=== PATIENT | female | born 1985 | race Caucasian/White ===

== ENCOUNTER 2022-09-07 09:48 | Outpatient (CLI) | payer OTHER, SELFPAY ==
--- NOTE | 2022-09-07 10:00 | ECG_ITS ---
Measurements Intervals [place] Rate: 82 P: 41 OH: 155 QRS: 12 QRSD: 105 T: 10 QT: 358 QTc: 419 Interpretive Statements SINUS RHYTHM BORDERLINE T WAVE ABNORMALITY- ANTERIOR LEADS BASELINE ARTIFACT- III, AVR, AVL, AVF, V4-V6 BORDERLINE ECG NO PREVIOUS ECG AVAILABLE FOR COMPARISON Electronically Signed On 09-07-2022 10:28:11 SKI MOLDER by [place] D.O.
[2022-09-07 10:42] LABS: Hematocrit 39.7 % (37.0-47.0); Hemoglobin 13.3 g/dL (12.0-15.0)
== END 2022-09-07 09:49 | disposition home or self-care (01) ==
LOC: ANHSURGERY 09:52
PROVIDERS: PCP Nurse Practitioner Adult Health; Visit Provider Obstetrics & Gynecology Gynecology
DX: N81.4 Uterovaginal prolapse, unspecified (principal); N39.3 Stress incontinence (female) (male); E78.00 Pure hypercholesterolemia, unspecified; Z01.818 Encounter for other preprocedural examination; R94.31 Abnormal electrocardiogram [ECG] [EKG]
CPT/HCPCS: 36415; 85014; 85018; 86850; 86900; 86901; 87086; 93005

== ENCOUNTER 2022-09-13 00:57 | Day surgery (SDC) | payer OTHER, SELFPAY ==
--- NOTE | 2022-09-05 14:10 | PM.IMHP ---
H&P: HPI History of Present Illness Date/Time: 09/05/22 14:10 Chief Complaint: Stress incontinence Narrative: desires treatment of her stress incontinence. She is undergoing hysterectomy as well. Review of Systems Review of Systems: All systems reviewed & are unremarkable except as noted in HPI and below Meds Home Medications and Allergies Allergies Allergy/AdvReac Type Severity Reaction Status Date / Time No Known Allergies Allergy Mild Verified 01/12/14 16:23 Exam Narrative: No acute distress normal breathing urethral mobility noted Assessment and Plan Assessment and plan (1) YEIMY (stress urinary incontinence, female): Code(s): N39.3 - Stress incontinence (female) (male) Status: Acute Assessment and Plan: urethral sling. Understands risks of bleeding, infection, lack of efficacy, recurrence, persistence, vaginal mesh extrusion, urinary tract mesh erosion, obstructive voiding requiring secondary procedure, hip and leg pain, dyspareunia. Agrees to proceed
[2022-09-06 14:43] VITALS: BMI 30.4
--- NOTE | 2022-09-06 14:48 | PC.NURSE ---
Report to the Outpatient Waiting Room, entrance under the green pavilion located off [facility], at time 7:15 on date 09/13/22. Planned Procedure Time: 9:15. Time changes happen often and if your time is changed the preop area will call you the afternoon before. - You and your visitor will be asked to self-screen and do not enter if you have any COVID symptoms. - We encourage only one visitor and NO visitors under age 16 are allowed at this time. Your visitor will receive communication by the phone number that is given day of service. - The patient visitor is requested to social distance or may leave the building when not with patient due to restrictions. - A mask is OPTIONAL within the hospital. Patients may have clear liquids (water, carbonated beverages, clear teas, apple juice) until 3 hours prior to surgery (6:15) with a maximum of 20 ounces. - No food from midnight until time of surgery Take the following medications with a SIP of water the morning of surgery: LEVOTHYROXINE Medications to discontinue per physician: VITAMINS/SUPPLEMENTS Date to take last dose: 09/09/22 Please no make-up, nail cambodian, hairspray, perfume, deodorant, or body powder the day of surgery. No jewelry (including any body piercings) or valuables the day of surgery, leave them at home. Please take a shower or bath the night before, or the morning of, surgery with an antibacterial soap. Wear comfortable, loose fitting clothing. - Jewelry must be removed prior to entering the operating room. Rings and piercings that are not removed may be cut off. - The hospital will not accept responsibility for valuables. - Please leave all valuables, including medications, at home the day of surgery. If you are going home after surgery, a licensed furniture delivery driver must drive you home. - NO public transportation without another adult. - We recommend that an adult stay with you for 24 hours following discharge. - We also recommend that you do not drive, make important decision, drink alcoholic beverages, or take any drugs that were not prescribed by your health care provider for at least 24 hours after your discharge time. Follow any additional instructions given to you from your surgeon. If you or anyone in your household have experienced Covid symptoms in the past week, please notify your surgeon or the nurse liaison at the phone number below for possible testing. Telephone instructions given to PT - LILLIE BOWEN and asked if any additional questions and then verbalized understanding. Patient advised to call surgeon office or pre surgery nurse liaison [phone] if any additional questions.
--- NOTE | 2022-09-10 15:56 | P.PNAN_ITS ---
Anes - Initial Pre Proc Eval Procedure: Operation Date: 09/13/22 09:15 Proposed Procedures p Total Vaginal Hysterectomy with Anterior and Posterior Vaginal Repair - Magui Lindsey MD s Urethral Sling - Hussein Wells MD Date/Time: 09/10/22 15:56 Surgeon: Magui Lindsey MD Pre Op Diagnosis: Cystocele, Retocele, Uterine Prolapse Patient Data Age: 37 Gender: F Height: 1.73 m Weight: 90.72 kg Allergies Allergy/AdvReac Type Severity Reaction Status Date / Time topiramate [From Topamax] Allergy Other Verified 09/06/22 14:41 codeine AdvReac Mild Nausea and Verified 09/13/22 07:10 Vomiting Home Medications Medication Instructions Recorded Confirmed Type atorvastatin 20 mg tablet 20 mg PO DAILY 09/06/22 09/13/22 History folic acid 1 mg tablet 1 mg PO DAILY 09/06/22 09/13/22 History levothyroxine 25 mcg tablet 25 mcg PO DAILY 09/06/22 09/13/22 History lisdexamfetamine 60 mg capsule 60 mg PO DAILY 09/06/22 09/13/22 History (Vyvanse) cetirizine 10 mg tablet (Zyrtec) 10 mg PO DAILY 09/13/22 09/13/22 History fluticasone propionate 50 1 spray intranasal DAILY 09/13/22 09/13/22 History mcg/actuation nasal spray,suspension (Flonase Allergy Relief) Patient hx anesthesia problems: none Family hx anesthesia problems: none Results Review: All pre-operative results and documents have been reviewed as part of the pre-operative evaluation. [facility] Past Medical History Medical History (Updated 09/13/22 @ 07:39 by Magui Lindsey MD) Anxiety ADHD Hyperlipidemia Hypothyroidism Cecilio's Obesity PONV (postoperative nausea and vomiting) YEIMY (stress urinary incontinence, female) Surgical History Surgical History (Updated 09/13/22 @ 07:36 by Magui Lindsey MD) History of breast augmentation History of hip surgery arthroscopy History of laparoscopic cholecystectomy History of removal of implants of both breasts 2021 Social History Social History Smoking status: Never smoker Alcohol intake: current Alcohol use details: 2/MONTH Substance use: never Substance use type: does not use Living arrangements: with family Additional living arrangements comments: DAUGHTER Spiritual care concerns: No Anes - Eval Final PreProcedure Day of Procedure 09/10/22 15:56 Patient weight: obese Heart: regular rate and rhythm Lungs: clear to auscultation and normal air movement Airway: Mallampati scale class II Neurological: alert and oriented Last oral intake: >/= 8 hours ASA classification: II Emergent: no Anesthetic plan: proceed Anesthesia type and monitoring: general ETT Results Review: All pre-operative results and documents have been reviewed as part of the pre- operative evaluation. Informed Consent: The patient's anesthetic plan and its attendant risks and benefits were discussed with the patient/family/POA. Questions were solicited and answers provided to the satisfaction of the patient/family/POA.
[2022-09-13] VITALS (12 sets, daily range): BP systolic 92–125; BP diastolic 53–93; PULSE 75–101; RESP 12–20; TEMP 36.4–37; O2SAT 92–100
[2022-09-13] MEDS: ACETAMINOPHEN 500 MG TABLET 1000 MG PO (07:12)
--- NOTE | 2022-09-13 07:14 | PM.IMHP ---
H&P: HPI History of Present Illness Date/Time: 09/13/22 07:14 Chief Complaint: YEIMY Review of Systems Review of Systems: All systems reviewed & are unremarkable except as noted in HPI and below PMFSH Past Medical History Medical History Anxiety Hyperlipidemia Hypothyroidism Obesity PONV (postoperative nausea and vomiting) YEIMY (stress urinary incontinence, female) Social History Social History Smoking status: Never smoker Alcohol intake: current Alcohol use details: 2/MONTH Substance use: never Substance use type: does not use Living arrangements: with family Additional living arrangements comments: DAUGHTER Spiritual care concerns: No Meds Home Medications and Allergies Home Medications Medication Instructions Recorded Confirmed Type atorvastatin 20 mg tablet 20 mg PO DAILY 09/06/22 09/13/22 History folic acid 1 mg tablet 1 mg PO DAILY 09/06/22 09/13/22 History levothyroxine 25 mcg tablet 25 mcg PO DAILY 09/06/22 09/13/22 History lisdexamfetamine 60 mg capsule 60 mg PO DAILY 09/06/22 09/13/22 History (Vyvanse) cetirizine 10 mg tablet (Zyrtec) 10 mg PO DAILY 09/13/22 09/13/22 History fluticasone propionate 50 1 spray intranasal DAILY 09/13/22 09/13/22 History mcg/actuation nasal spray,suspension (Flonase Allergy Relief) Allergies Allergy/AdvReac Type Severity Reaction Status Date / Time topiramate [From Topamax] Allergy Other Verified 09/06/22 14:41 codeine AdvReac Mild Nausea and Verified 09/13/22 07:10 Vomiting Exam Narrative: + urethral mobility Assessment and Plan Assessment and plan (1) YEIMY (stress urinary incontinence, female): Code(s): N39.3 - Stress incontinence (female) (male) Status: Acute Assessment and Plan: urethral sling
--- NOTE | 2022-09-13 07:15 | WPDHPUPDATE1 ---
History and Physical Update Update Date/Time: 09/13/22 07:15 History and Physical has been reviewed, including an updated exam of the patient. There are NO changes in the patient's condition. Risks, benefits, and alternatives have been discussed and questions answered. Patient agrees to proceed with procedure.
--- NOTE | 2022-09-13 07:27 | WPDHPUPDATE1 ---
History and Physical Update Update Date/Time: 09/13/22 07:27 History and Physical has been reviewed, including an updated exam of the patient. There are NO changes in the patient's condition. Risks, benefits, and alternatives have been discussed and questions answered. Patient agrees to proceed with procedure.
--- NOTE | 2022-09-13 07:28 | PM.IMHP ---
H&P: HPI History of Present Illness Date/Time: 09/13/22 07:28 Chief Complaint: symptomatic pelvic organ prolapse with stress urinary incontinence Narrative: the patient is a 37-year-old being admitted for pelvic organ prolapse and stress urinary incontinence. Patient has had increasingly symptomatic pelvic organ prolapse. The patient states she has increasing pain with sex due to mobility of her cervix. She is also having increased pressure with bowel movements. Her stress incontinence has been getting worse and she was wearing a pad at all times with frequent leaking episodes. Patient had urodynamic testing which revealed hypermobility and leaking. The patient did have normal bladder compliance. However she did also have decreased sensory volumes. Patient had consultation with Dr. Wells who will be performing a sling. The patient will undergo total vaginal hysterectomy with anterior-posterior repair followed by the sling by Dr Wells. The risks of surgery including infection, bleeding, injury to internal organs ( bowel, bladder, ureters ), deep vein thrombosis, general anesthesia, and mesh complications were reviewed. Long-term success and failure was discussed with the patient. The patient voices understanding and agrees to proceed. Review of Systems Constitutional: Constitutional: Reports fatigue and Reports headache(s) Genitourinary: Genitourinary: Reports dyspareunia and Reports urinary incontinence Musculoskeletal: Musculoskeletal: Reports neck pain Psychiatric: Psychiatric: Reports anxiety PMFSH Past Medical History Medical History (Updated 09/13/22 @ 07:39 by Magui Lindsey MD) Anxiety ADHD Hyperlipidemia Hypothyroidism Cecilio's Obesity PONV (postoperative nausea and vomiting) YEIMY (stress urinary incontinence, female) Surgical History Surgical History (Updated 09/13/22 @ 07:36 by Magui Lindsey MD) History of breast augmentation History of hip surgery arthroscopy History of laparoscopic cholecystectomy History of removal of implants of both breasts 2021 Social History Social History Smoking status: Never smoker Alcohol intake: current Alcohol use details: 2/MONTH Substance use: never Substance use type: does not use Living arrangements: with family Additional living arrangements comments: DAUGHTER Spiritual care concerns: No Meds Home Medications and Allergies Home Medications Medication Instructions Recorded Confirmed Type atorvastatin 20 mg tablet 20 mg PO DAILY 09/06/22 09/13/22 History folic acid 1 mg tablet 1 mg PO DAILY 09/06/22 09/13/22 History levothyroxine 25 mcg tablet 25 mcg PO DAILY 09/06/22 09/13/22 History lisdexamfetamine 60 mg capsule 60 mg PO DAILY 09/06/22 09/13/22 History (Vyvanse) cetirizine 10 mg tablet (Zyrtec) 10 mg PO DAILY 09/13/22 09/13/22 History fluticasone propionate 50 1 spray intranasal DAILY 09/13/22 09/13/22 History mcg/actuation nasal spray,suspension (Flonase Allergy Relief) Allergies Allergy/AdvReac Type Severity Reaction Status Date / Time topiramate [From Topamax] Allergy Other Verified 09/06/22 14:41 codeine AdvReac Mild Nausea and Verified 09/13/22 07:10 Vomiting Exam Const: General: healthy appearing and alert Orientation/consciousness: patient oriented x3 Resp: Effort & Inspection: normal respiratory effort GI: GI Palp: Yes Soft to palpation, No Tenderness to palpation present (GI) and No Palpable mass present : External Female Exam: normal external appearance Speculum Exam - Vagina: normal vaginal discharge and other ( third-degree cystocele with second-degree rectocele) Speculum Exam - Cervix: normal appearance of the cervix Bimanual exam- vagina & uterus: uterine size normal, consistency normal and other ( descent to just below spines with Valsalva ) Bimanual Exam- Adnexa, other: normal adnexae a
[2022-09-13] MEDS: LACTATED RINGERS 1,000 ML 30 ML IV CONT ×2 (07:41→11:33)
[2022-09-13] MEDS: KETOROLAC 15 MG/ML VIAL (*BKC) IV PUSH (07:56)
[2022-09-13] MEDS: SCOPOLAMINE 1.5 MG PATCH TRANSDERM (08:16)
[2022-09-13] MEDS: ceFAZolin 2 GM/D5W 50 ML 2 GM/50 ML BAG IVPB (09:06)
[2022-09-13] MEDS: LIDO 2%/EPINEPHRINE 1:100,000 50 ML VIAL INFILTRATE (10:48)
--- NOTE | 2022-09-13 10:49 | W.PM.PROC2 ---
Procedure Note - Detailed Date of Procedure 09/13/22 Pre-op Diagnosis Cystocele, Retocele, Uterine Prolapse,GSI Post-op Diagnosis Same Procedure Performed Total vaginal hysterectomy anterior-posterior vaginal repair Surgeon Magui Lindsey MD Anesthesia General Findings third-degree rectocele, second-degree cystocele, uterus at the spines at rest +3 with traction, normal-appearing tubes, ovaries, and uterus Description of Procedure The patient is taken to operating room and placed in dorsal lithotomy position. She was prepped and draped in the usual sterile fashion. The Kyung retractors placed anteriorly and the short weighted retractor was placed posteriorly. The cervix was grasped on the anterior lip with a tenaculum. The cervix is injected circumferentially with 2% lidocaine with epinephrine. The vaginal mucosa around the cervix is incised in a circumferential manner. The vaginal mucosa was dissected off anteriorly using sharp and blunt dissection. Peritoneum was entered and the Kyung retractor placed into the peritoneal cavity. The posterior vaginal mucosa was dissected off and the posterior peritoneum entered with Metzenbaum scissors. The long weighted speculum was placed intraperitoneally. The cardinal and uterosacral ligaments are serially clamped, transected, and suture ligated with 0 Vicryl. These are tagged for future use. The uterine vessels are clamped, transected, and suture ligated with 0 Vicryl. The posterior fundus was grasped with a piercing towel clamp through the cul-de-sac and delivered. The utero-ovarian ligament is clamped, transected, and suture ligated with 0 Vicryl. The specimen is removed. One portion of the left tube is not within the clamp and this was free tied with with 0 Vicryl prior to cutting the uterus free. Good hemostasis at all pedicles is noted. The long weighted speculum was changed out for the short weighted speculum. The peritoneum was grasped anteriorly and posteriorly with a Peon. The peritoneal cavity was closed in a pursestring fashion with 0 Ethibond incorporating the previously tagged uterosacral ligaments. The vaginal cuff was closed using 0 Vicryl in a running, locked fashion. Attention was then turned posteriorly and the posterior retractor was removed. The hymenal ring is grasped at 5 and 7:00 a.m. with Allis clamps. The intervening tissue was incised with a scalpel and a a triangular portion of skin is removed. The midline of the vaginal mucosa is injected with 2% lidocaine with epinephrine. The vaginal mucosa was dissected off the midline in a sharp manner grasping each edge with Allis clamps as the dissection and incising proceeded to apex of the rectocele. The rectocele was then dissected off laterally using sharp and blunt dissection. The rectocele was reduced using interrupted horizontal mattress sutures of 0 Ethibond. Once the rectocele was fully reduced the excess vaginal mucosa is excised. The vaginal mucosa was closed using 0 Vicryl in a running locked fashion. The short weighted speculum was replaced and the and clamps are used to grasp the base of the cystocele at 5 and 7:00 a.m. The vaginal mucosa is injected with 2% lidocaine with epinephrine in the midline. Scalpel used to incise the vaginal mucosa between the 2 clamps. The midline dissection was performed using the Metzenbaum scissors. The mucosa was incised in the midline grasping the edges with Allis clamps until the apex is reached. A single clamp was placed in the midline at the apex. The lateral vaginal dissection is performed using sharp and blunt dissection. The cystocele was reduced using interrupted horizontal mattress sutures of 0 Ethibond. Once the cystocele was fully reduced the excess vaginal mucosa is excised. The vaginal mucosa was closed using 0 Vicryl in a running locked fashion. The case was then turned over to Dr. Wells for the sling. Estimated Blood Loss 50 Drains Yes
--- NOTE | 2022-09-13 10:58 | P.DS_ITS ---
DS: Admitting Diagnosis Discharge Date 09/14/22 Admitting Diagnosis symptomatic pelvic organ prolapse with cystocele, rectocele, uterine prolapse genuine stress incontinence DS: Discharge Diagnosis Discharge Diagnosis (1) S/P vaginal hysterectomy: Code(s): Z90.710 - Acquired absence of both cervix and uterus Status: Acute (2) S/P anterior colporrhaphy: Code(s): Z98.890 - Other specified postprocedural states Status: Acute DS: Summary Hospital Course Hospital Course: At the time of discharge, the patient is tolerating regular diet, voiding, and ambulating. Status at Discharge Functional status at discharge: independent ambulation Overall status at discharge: patient is progressing back to baseline Time Spent with Patient Time attestation: Total time spent providing and/or coordinating discharge services: DS: Data Data Completed and Pending Pending studies at discharge: Pending at discharge 09/13/22 10:07 Surgical [PTH] Routine Discharge Plan Discharge Patient Disposition: Home, Self-Care Stand Alone Forms: General Discharge Instructions Follow-up/Referrals: Hussein Wells MD [Physician] - Keep Reg. Scheduled Appt. Magui Lindsey MD [Physician] - Discharge Medications: New oxycodone-acetaminophen [Percocet] 5-325 mg tablet 1 tablet PO Q6H PRN (Reason: pain) Qty: 10 0RF No Action atorvastatin 20 mg tablet 20 mg PO DAILY levothyroxine 25 mcg tablet 25 mcg PO DAILY folic acid 1 mg tablet 1 mg PO DAILY Vyvanse 60 mg capsule 60 mg PO DAILY cetirizine [Zyrtec] 10 mg Tablet 10 mg PO DAILY fluticasone propionate [Flonase Allergy Relief] 50 mcg/actuation [place],Suspension 1 spray INTRANASAL DAILY Rx Instructions: administer into each nostril
[2022-09-13] MEDS: BUPIVACAINE/EPINEPHRINE 0.25% 10 ML VIAL 20 ML INFILTRATE (11:06)
--- NOTE | 2022-09-13 11:26 | P.OP_ITS ---
Procedure Note - Detailed Date of Procedure 09/13/22 Pre-op Diagnosis Stress incontinence Post-op Diagnosis Same Procedure Performed mid urethral sling cystoscopy Surgeon Hussein Wells MD Anesthesia General Indications This is a female with confirm stress urinary incontinence. She desires surgical correction. She understands the risks of bleeding, infection, injury to the urinary tract, vaginal mesh extrusion, urinary tract mesh erosion, obstructive voiding requiring a secondary procedure, hip and leg pain, dyspareunia, inability to improve overactive bladder symptoms. She agrees to proceed. We would do this in conjunction with a vaginal hysterectomy and anterior- posterior repair. Description of Procedure She was given appropriate perioperative antibiotics. A time-out performed. I noticed some vaginal bleeding with clots. I examined the vagina. There is a small area on the posterior repair which was not fully closed. I easily closed this with a 2-0 Vicryl in a [id number] fashion. I closed only mucosa to mucosa. This seemed to resolve the bleeding. I marked out the site of the inner thigh incisions. I anesthetized the skin and made those incisions. I anesthetized the anterior vaginal wall over the mid urethra. Of note the suture line of the anterior repair came very close to the mid urethra. I made a 1 cm incision. I dissected out laterally taking great care not to injure the refilled vaginal wall. I passed the helical trocars. First on the left. Then on the right. I did this from the thigh incision towards the vaginal incision. The sling was connected to the trocars and brought out through the thigh i ncision. I tensioned the sling appropriately. I cut and the plastic sheaths. I then closed the incision with 2 0 Vicryl. I palpated the sulcus bilaterally. There is no sign of mesh exposure. On cystoscopy there is no tumors or surgical artifact. There was no surgical artifact in the urethra. Bilateral ureteral patency was documented by either seen clear yellow urine or by passing a guidewire up the ureter. I cut the excess sling material. Closed incisions with glue. Vaginal packing was placed per the instructions of her film color tester. A Jaramillo catheter was replaced. She was awakened and transferred to the PACU in stable condition. Implants Urethral sling Estimated Blood Loss 50 Drains No Packing No Pathology None sent Complications No immediate complications Condition Stable Disposition PACU
[2022-09-13] MEDS: fentaNYL CITRATE INJ (*CRX) 100 MCG/2 ML VIAL 25 MCG IV PUSH ×5 (12:00→12:56)
[2022-09-13] MEDS: ONDANSETRON INJ 4 MG/2 ML VIAL IV PUSH ×2 (12:00→18:18)
[2022-09-13] MEDS: KETOROLAC 30 MG/ML VIAL (*BKC) IV PUSH ×2 (13:47→21:10)
[2022-09-13] MEDS: DEXTROSE 5%/LACTATED RINGERS 1,000 ML 125 ML IV CONT (13:48)
[2022-09-13] MEDS: HYDROcodone/acetaminophen (*CRX) 10-325 MG TABLET 1 TAB PO ×2 (13:55→17:04)
[2022-09-14] MEDS: HYDROcodone/acetaminophen (*CRX) 5-325 MG TABLET 1 TAB PO ×2 (01:35→08:57)
[2022-09-14] MEDS: ONDANSETRON INJ 4 MG/2 ML VIAL IV PUSH ×2 (01:36→08:57)
[2022-09-14 05:30] VITALS: BP 103/63; PULSE 72; RESP 18; TEMP 36.9; O2SAT 96; O2SAT 97
[2022-09-14] MEDS: LEVOTHYROXINE SODIUM 25 MCG TABLET PO (05:56)
[2022-09-14] MEDS: KETOROLAC 30 MG/ML VIAL (*BKC) IV PUSH (05:57)
[2022-09-14 07:40] VITALS: BP 92/62; PULSE 79; RESP 18; TEMP 37.3; O2SAT 98
--- NOTE | 2022-09-14 08:01 | PM.GYNPNOP ---
R[employer] - A/P Postoperative Procedures: Procedures Operation Date: 09/13/22 09:15 Actual Procedure Side Surgeon p Total Vaginal Hysterectomy with Anterior and Posterior Vaginal Repair Not Applicable Magui Lindsey MD s Urethral Sling Not Applicable Hussein Wells MD Postoperative day: 1 Postoperative status: doing well and other (change to percocet due to nausea with norco) Postoperative plan: routine post-op care and discharge Time Spent With Patient Time: Total time spent is greater than 50% in coordination of care (as documented) at patient's floor/unit and/or counseling patient: Time with patient: less than 15 minutes [employer]- PN:Subj Post-Op Subjective Date/time seen: 09/14/22 08:01 Subjective: patient has no complaints, pain is well controlled, patient is tolerating oral intake and other (voided this am) Exam Narrative: minimal blood on pad abdomen soft, nt [employer] - PN: Obj Data Vital Signs Vital Signs: Vital Signs - 24 hr 09/13/22 11:33 09/13/22 11:45 09/13/22 12:00 Temperature 97.5 F L Pulse Rate 101 H 93 88 Respiratory Rate 12 18 20 Blood Pressure 116/79 118/85 119/84 Pulse Oximetry 99 100 100 Oxygen Delivery Simple Face Mask Simple Face Mask Simple Face Mask Oxygen Flow Rate 8 8 8 09/13/22 12:15 09/13/22 12:30 09/13/22 12:45 Temperature Pulse Rate 88 92 83 Respiratory Rate 20 20 20 Blood Pressure 121/82 115/82 Pulse Oximetry 94 93 92 Oxygen Delivery Room Air Room Air Room Air Oxygen Flow Rate 09/13/22 13:00 09/13/22 13:40 09/13/22 13:10 Temperature 98.6 F Pulse Rate 79 78 Respiratory Rate 18 16 Blood Pressure 117/83 104/69 Pulse Oximetry 93 97 Oxygen Delivery Room Air Room Air Oxygen Flow Rate 09/13/22 16:15 09/13/22 16:15 09/13/22 20:43 Temperature 97.6 F 98.6 F Pulse Rate 75 78 Respiratory Rate 16 14 Blood Pressure 92/53 L 109/67 Pulse Oximetry 97 95 Oxygen Delivery Room Air Oxygen Flow Rate 09/13/22 23:28 09/14/22 05:30 09/14/22 05:30 Temperature 97.9 F 98.5 F Pulse Rate 86 72 72 Respiratory Rate 16 18 18 Blood Pressure 105/58 L 103/63 Pulse Oximetry 97 96 97 Oxygen Delivery Room Air Oxygen Flow Rate Intake/Output Intake/Output: Intake & Output 09/11/22 09/12/22 09/13/22 09/14/22 23:59 23:59 23:59 23:59 Intake Total 1750 500 Output Total 410 750 Balance 1340 -250 Meds/Results Medications: Active Medications Generic Name Dose Route Start Last Admin Trade Name Freq PRN Reason Stop Dose Admin Hydrocodone Bitart/Acetaminophen 1 tab 09/13/22 13:08 09/14/22 01:35 Hydrocodone/Acetaminophen (*Crx) 5-325 Mg Tablet PO 1 tab Q3H PRN Administration Pain Rated 5 or Less Hydrocodone Bitart/Acetaminophen 1 tab 09/13/22 13:08 09/13/22 17:04 Hydrocodone/Acetaminophen (*Crx) 10-325 Mg Tablet PO 1 tab Q3H PRN Administration Pain Rated 6 or Greater Atorvastatin Calcium 20 mg 09/14/22 09:00 Atorvastatin 20 Mg Tablet PO DAILY DELORIS Fluticasone Propionate 1 spray 09/14/22 09:00 Fluticasone Propionate 0.05% Na Spr 16 Gm Btl (*Bkc) NASAL DAILY DELORIS Folic Acid 1 mg 09/14/22 09:00 Folic Acid 1 Mg Tablet PO DAILY DELORIS Dextrose/Lactated Ringer's 1,000 mls @ 125 mls/hr 09/13/22 13:08 09/13/22 22:13 Dextrose 5%/Lactated Ringers IV CONT Infused .Q8H DELORIS Infusion Ibuprofen 600 mg 09/13/22 13:08 Ibuprofen 600 Mg Tablet PO Q6H PRN Cramping Ketorolac Tromethamine 30 mg 09/13/22 13:08 09/14/22 05:57 Ketorolac 30 Mg/Ml Vial (*Bkc) IV PUSH 09/18/22 13:07 30 mg Q6H PRN Administration Pain Rated 4-6 Levothyroxine Sodium 25 mcg 09/14/22 06:30 09/14/22 05:56 Levothyroxine Sodium 25 Mcg Tablet PO 25 mcg DAILY@0630 DELORIS Administration Loratadine 10 mg 09/14/22 09:00 Loratadine 10 Mg Tablet PO 10/14/22 08:59 DAILY DELORIS Miscellaneous Information 0 each 09/13/22 00:01 Lisdexamfetamine [Vyvanse] 60 Mg
[2022-09-14] MEDS: FLUTICASONE PROPIONATE 0.05% NA SPR 16 GM BTL (*BKC) 1 SPRAY NASAL (08:58)
[2022-09-14] MEDS: LORATADINE 10 MG TABLET PO (08:58)
[2022-09-14] MEDS: FOLIC ACID 1 MG TABLET PO (08:58)
[2022-09-14] MEDS: ATORVASTATIN 20 MG TABLET PO (08:58)
== END 2022-09-14 11:12 | disposition home or self-care (01) ==
LOC: ANHSURGERY 06:57 → ANHOB2 13:20
PROVIDERS: Urology; PCP Nurse Practitioner Adult Health; Visit Provider Obstetrics & Gynecology Gynecology
PROC: (CPT 58260; principal; 2022-09-13 09:15)
PROC: (CPT 57288; 2022-09-13 09:15)
DX: N39.3 Stress incontinence (female) (male) (principal); N81.2 Incomplete uterovaginal prolapse; E78.5 Hyperlipidemia, unspecified; F90.9 Attention-deficit hyperactivity disorder, unspecified type; E06.3 Autoimmune thyroiditis; E66.9 Obesity, unspecified; Z68.31 Body mass index [BMI] 31.0-31.9, adult
CPT/HCPCS: 57288; 57260; 58260; 36415; 85014; 85018; 86850; 86900; 86901; 87086; 88307; 93005; 99199; A9270; C1758; C1769; C1771; J0330; J0690; J1100; J1170; J1885; J2250; J2405; J2704; J3010; J7120; J7121

== ENCOUNTER 2022-11-21 08:01 | Day surgery (SDC) | payer OTHER, SELFPAY ==
[2022-11-21] VITALS (17 sets, daily range): BP systolic 95–130; BP diastolic 59–89; PULSE 75–94; RESP 14–20; TEMP 36.1–36.8; O2SAT 98–100
--- NOTE | 2022-11-21 09:20 | ED.GENADULT ---
HPI - General Adult General Chief complaint: Recheck/Abnormal Lab/Rx Stated complaint: post op complications Time Seen by Provider: 11/21/22 08:19 History of Present Illness HPI narrative: Patient is a 37-year-old female who presents the ER with vaginal bleeding. Patient recently underwent hysterectomy as well as your gynecological mesh placement. She recently had to have some mesh modified on 11/11/[address] Wells. [place] she was working and had sudden onset bleeding from her vagina. Began at 4:30 AM. 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 She is on no blood thinners. She is having some dizziness when going from sitting to standing. She is not passing clots, is large volume liquid blood coming from the vagina. She has mild suprapubic discomfort/pressure. Related Data Home Medications Medication Instructions Recorded Confirmed atorvastatin 20 mg tablet 20 mg PO DAILY 09/06/22 09/13/22 folic acid 1 mg tablet 1 mg PO DAILY 09/06/22 09/13/22 levothyroxine 25 mcg tablet 25 mcg PO DAILY 09/06/22 09/13/22 lisdexamfetamine 60 mg capsule 60 mg PO DAILY 09/06/22 09/13/22 (Vyvanse) cetirizine 10 mg tablet (Zyrtec) 10 mg PO DAILY 09/13/22 09/13/22 fluticasone propionate 50 1 spray intranasal DAILY 09/13/22 09/13/22 mcg/actuation nasal spray,suspension (Flonase Allergy Relief) Allergies Allergy/AdvReac Type Severity Reaction Status Date / Time topiramate [From Topamax] Allergy Other Verified 11/21/22 08:19 codeine AdvReac Mild Nausea and Verified 11/21/22 08:19 Vomiting Review of Systems Review of Systems: All systems reviewed & are unremarkable except as noted in HPI and below Constitutional: Constitutional: Denies chills, Denies fatigue and Denies fever(s) ENT: Denies nasal congestion and Denies sore throat Cardiovascular: Cardiovascular: Denies chest pain, Denies rapid heart rate and Denies radiating jaw, neck or arm pain Respiratory: Respiratory: Denies cough and Denies dyspnea Gastrointestinal: Gastrointestinal: Reports abdominal pain, Denies nausea and Denies vomiting Genitourinary: Genitourinary: Reports abnormal vaginal bleeding and Reports pelvic pain PMF Past Medical History Medical History (Updated 11/21/22 @ 10:33 by Hardik Flores MD) Anxiety ADHD Hyperlipidemia Hypothyroidism Cecilio's Obesity PONV (postoperative nausea and vomiting) YEIMY (stress urinary incontinence, female) Surgical History Surgical History (Updated 09/13/22 @ 10:59 by Magui Lindsey MD) History of breast augmentation History of hip surgery arthroscopy History of laparoscopic cholecystectomy History of removal of implants of both breasts 2021 Social History Social History Smoking status: Never smoker Alcohol intake: current Alcohol use details: 2/MONTH Substance use: never Substance use type: does not use Living arrangements: with family Additional living arrangements comments: DAUGHTER Spiritual care concerns: No Exam Narrative: GENERAL: Well-appearing, well-nourished, and in no acute distress. HEAD: Normocephalic, atraumatic. CHEST: Clear to auscultation. No respiratory distress. HEART: Regular rate and rhythm. Normal peripheral pulses. ABDOMEN: Soft, nontender, nondistended. : External genitalia normal appearing without laceration. Vagina with large amount of liquid blood with scant clotting. When cleared there is still some oozing. After short interval vagina completely filled with blood again. Difficult to identify source. Vaginal packing placed. There is no cervix and vaginal cuff identified and appears intact. EXTREMITIES: Normal range of motion. No edema. SKIN: Warm, dry, no rash. NEURO: Alert and oriented x3. PSYCH: Normal mood and affect. Course Consultations Consultation #1: Discussed with Dr. Wells. Recommends leaving the vaginal packing in for an hour and to call back wi
[2022-11-21] MEDS: SODIUM CHLORIDE 0.9% IV 1,000 ML 999 ML IV CONT (09:29)
[2022-11-21 09:47] LABS: Basophils Percent Auto 0.4 % (0.2-1.2); Eosinophils Absolute Auto 0.1 K/mm3 (0-0.3); Eosinophils Percent Auto 1.1 % (0-4.4); Hemoglobin 12.8 g/dL (12.0-15.0); Immature Granulocyte Absolute 0.03 K/mm3 (0.00-0.031); Immature Granulocyte Percent A 0.4 % (0-0.5); Lymphocytes Absolute Auto 2.94 K/mm3 (0.9-3.2); Lymphocytes Percent Auto 35.9 % (18.3-44.2); Mean Corpuscular HGB Conc 33.7 g/dl (32-36); Mean Corpuscular Hemoglobin 30.7 pg (26-34); Mean Corpuscular Volume 91.1 fl (80-100); Mean Platelet Volume 9.3 fl (7.4-10.4); Monocytes Absolute Auto 0.5 K/mm3 (0.1-0.6); Monocytes Percent Auto 6.5 % (2.6-8.5); Neutrophils Absolute Auto 4.6 K/mm3 (1.3-6.7); Neutrophils Percent Auto 55.7 % (45.5-73.1); Partial Thromboplastin Time 28.8 SECONDS (22.3-36.8); Platelet Count Result 313 k/mm3 (150-375); Prothrombin Time 12.9 Seconds (11.1-14.7); Red Blood Count 4.17 M/mm3 (4.2-5.4); Red Cell Distribution Width 12.4 % (11.5-14.5); White Blood Count 8.2 K/mm3 (4.5-10.0)
[2022-11-21 10:00] LABS: Alanine Aminotransferase 24 U/L (6-35); Albumin Level 4.4 g/dL (3.5-5.1); Alkaline Phosphatase 99 U/L (38-126); Anion Gap 2 mmol/L (8-16); Aspartate Amino Transferase 37 U/L (14-36); Bilirubin,Total 0.6 mg/dL (0.2-1.3); Blood Urea Nitrogen 14 mg/dL (7-17); Carbon Dioxide 30 mmol/L (22-30); Chloride 102 mmol/L (98-107); Estimated CRCL calculation 113 ml/min; Estimated Glomerular Filt Rate > 60; Glucose 101 mg/dL (65-110); Potassium 3.9 mmol/L (3.4-5.0); Sodium 134 mmol/L (137-145)
--- NOTE | 2022-11-21 11:28 | WPDANESEPP ---
Anes - Eval Pre Procedure Procedure: Operation Date: 11/21/22 12:00 Proposed Procedures p Removal TVT or TOT - Hussein Isiah Wells MD Date/Time: 11/21/22 11:28 Surgeon: Russell Preop Diagnosis: vaginal bleeding Pre Op Diagnosis: post op complications Patient Data Age: 37 Gender: F Height: 1.73 m Weight: 94.9 kg Last Vital Signs Temp 97.0 F L 11/21/22 08:07 Pulse 86 11/21/22 10:00 Resp 16 11/21/22 10:00 BP 110/71 11/21/22 10:00 Pulse Ox 99 11/21/22 10:00 O2 Del Method Room Air 11/21/22 08:07 Allergies Allergy/AdvReac Type Severity Reaction Status Date / Time topiramate [From Topamax] Allergy Other Verified 11/21/22 08:19 codeine AdvReac Mild Nausea and Verified 11/21/22 08:19 Vomiting Home Medications Medication Instructions Recorded Confirmed Type atorvastatin 20 mg tablet 20 mg PO DAILY 09/06/22 09/13/22 History folic acid 1 mg tablet 1 mg PO DAILY 09/06/22 09/13/22 History levothyroxine 25 mcg tablet 25 mcg PO DAILY 09/06/22 09/13/22 History lisdexamfetamine 60 mg capsule 60 mg PO DAILY 09/06/22 09/13/22 History (Vyvanse) cetirizine 10 mg tablet (Zyrtec) 10 mg PO DAILY 09/13/22 09/13/22 History fluticasone propionate 50 1 spray intranasal DAILY 09/13/22 09/13/22 History mcg/actuation nasal spray,suspension (Flonase Allergy Relief) oxycodone-acetaminophen 5 mg-325 1 tablet PO Q6H PRN pain #10 tabs 09/14/22 Rx mg tablet (Percocet) Laboratory Tests 11/21/22 11/21/22 11/21/22 09:31 09:31 09:31 WBC 8.2 K/mm3 K/mm3 (4.5-10.0) RBC 4.17 M/mm3 L M/mm3 (4.2-5.4) Hgb 12.8 g/dL g/dL (12.0-15.0) Hct 38.0 % % (37.0-47.0) MCV 91.1 fl fl (80-100) MCH 30.7 pg pg (26-34) MCHC 33.7 g/dl g/dl (32-36) RDW 12.4 % % (11.5-14.5) Plt Count 313 k/mm3 k/mm3 (150-375) MPV 9.3 fl fl (7.4-10.4) Immature Gran % (Auto) 0.4 % % (0-0.5) Neut % (Auto) 55.7 % % (45.5-73.1) Lymph % (Auto) 35.9 % % (18.3-44.2) [place] % (Auto) 6.5 % % (2.6-8.5) Eos % (Auto) 1.1 % % (0-4.4) Baso % (Auto) 0.4 % % (0.2-1.2) Lymph # (Auto) 2.94 K/mm3 K/mm3 (0.9-3.2) [place] # (Auto) 0.5 K/mm3 K/mm3 (0.1-0.6) Eos # (Auto) 0.1 K/mm3 K/mm3 (0-0.3) Baso # (Auto) 0.0 K/mm3 K/mm3 (0.0-0.1) Abs Immat Gran (auto) 0.03 K/mm3 K/mm3 (0.00-0.031) Absolute Neuts (auto) 4.6 K/mm3 K/mm3 (1.3-6.7) Absolute Nucleated RBC 0.0 K/mm3 K/mm3 (0.0-0.012) Nucleated RBC % 0.0 % % (0.0-0.2) PT 12.9 Seconds Seconds (11.1-14.7) INR 1.0 APTT 28.8 SECONDS SECONDS (22.3-36.8) Sodium 134 mmol/L L mmol/L (137-145) Potassium 3.9 mmol/L mmol/L (3.4-5.0) Chloride 102 mmol/L mmol/L (98-107) Carbon Dioxide 30 mmol/L mmol/L (22-30) Anion Gap 2 mmol/L L mmol/L (8-16) BUN 14 mg/dL mg/dL (7-17) Creatinine 0.70 mg/dL mg/dL (0.7-1.0) Estim Creat Clear Calc 113 ml/min ml/min Estimated GFR > 60 (59 - ) Glucose 101 mg/dL mg/dL (65-110) Calcium 9.0 mg/dL mg/dL (8.4-10.2) Total Bilirubin 0.6 mg/dL mg/dL (0.2-1.3) AST 37 U/L H U/L (14-36) ALT 24 U/L U/L (6-35) Alkaline Phosphatase 99 U/L U/L (38-126) Total Protein 7.0 g/dL g/dL (6.3-8.2) Albumin 4.4 g/dL g/dL (3.5-5.1) Blood Type Antibody Screen 11/21/22 09:32 WBC RBC Hgb Hct MCV MCH MCHC RDW Plt Count MPV Immature Gran % (Auto) Neut % (Auto) Lymph % (Auto) [place] % (Auto) Eos % (Auto) Baso % (Auto) Lymph # (Auto) [place] # (Auto) Eos # (Auto)
--- NOTE | 2022-11-21 11:45 | PM.IMHP ---
H&P: HPI History of Present Illness Date/Time: 11/21/22 11:45 Chief Complaint: Vaginal bleeding Narrative: This is a woman who had underwent a vaginal hysterectomy, anterior repair, urethral sling in late 2021. She did well postoperative initially. Unfortunately she had a small area of mesh exposure. Ten days ago she underwent excision of vaginal mesh as well as the bulking agent. She was doing well postoperatively. She had no stress incontinence. She was at work last night. She is a nurse on the shift leader. She states it was a particularly rough night at work with lots of heavy lifting. It for 30 in the morning she noted acute onset of vaginal bleeding. She required multiple pads changing every 2 hours. She presented to the emergency room. The vagina was packed, this did not subside the bleeding. She will be taken for exam under anesthesia with treatment of the bleeding. Review of Systems Review of Systems: All systems reviewed & are unremarkable except as noted in HPI and below PMFSH Past Medical History Medical History Anxiety ADHD Hyperlipidemia Hypothyroidism Cecilio's Obesity PONV (postoperative nausea and vomiting) YEIMY (stress urinary incontinence, female) Surgical History Surgical History History of breast augmentation History of hip surgery arthroscopy History of laparoscopic cholecystectomy History of removal of implants of both breasts 2021 Social History Social History Smoking status: Never smoker Alcohol intake: current Alcohol use details: 2/MONTH Substance use: never Substance use type: does not use Living arrangements: with family Additional living arrangements comments: DAUGHTER Spiritual care concerns: No Meds Home Medications and Allergies Home Medications Medication Instructions Recorded Confirmed Type atorvastatin 20 mg tablet 20 mg PO DAILY 09/06/22 09/13/22 History folic acid 1 mg tablet 1 mg PO DAILY 09/06/22 09/13/22 History levothyroxine 25 mcg tablet 25 mcg PO DAILY 09/06/22 09/13/22 History lisdexamfetamine 60 mg capsule 60 mg PO DAILY 09/06/22 09/13/22 History (Vyvanse) cetirizine 10 mg tablet (Zyrtec) 10 mg PO DAILY 09/13/22 09/13/22 History fluticasone propionate 50 1 spray intranasal DAILY 09/13/22 09/13/22 History mcg/actuation nasal spray,suspension (Flonase Allergy Relief) oxycodone-acetaminophen 5 mg-325 1 tablet PO Q6H PRN pain #10 tabs 09/14/22 Rx mg tablet (Percocet) Allergies Allergy/AdvReac Type Severity Reaction Status Date / Time topiramate [From Topamax] Allergy Other Verified 11/21/22 08:19 codeine AdvReac Mild Nausea and Verified 11/21/22 08:19 Vomiting Vital Signs Vital Signs - 24 hr 11/21/22 08:07 11/21/22 10:00 11/21/22 11:20 Temperature 97.0 F L Pulse Rate 83 86 90 Respiratory Rate 20 16 16 Blood Pressure 130/89 110/71 124/87 Pulse Oximetry 100 99 100 Oxygen Delivery Room Air Exam Narrative: No acute distress Nontoxic appearing Alert orient x3 Normal breathing Vaginal exam will be deferred for the OR as she has had multiple exams in the emergency room H&P: Results Labs Labs: Short CBC 11/21/22 Range/Units 09:31 WBC 8.2 (4.5-10.0) K/mm3 Hgb 12.8 (12.0-15.0) g/dL Hct 38.0 (37.0-47.0) % Plt Count 313 (150-375) k/mm3 BMP 11/21/22 09:31 Sodium 134 L Potassium 3.9 Chloride 102 Carbon Dioxide 30 BUN 14 Creatinine 0.70 Glucose 101 Calcium 9.0 Liver Function 11/21/22 Range/Units 09:31 Total Bilirubin 0.6 (0.2-1.3) mg/dL AST 37 H (14-36) U/L ALT 24 (6-35) U/L Alkaline Phosphatase 99 (38-126) U/L Albumin 4.4 (3.5-5.1) g/dL Assessment and Plan Assessment and plan (1) Vaginal bleeding: Code(s): N93.9 - Abnormal uterine and
--- NOTE | 2022-11-21 11:50 | WPDHPUPDATE1 ---
History and Physical Update Update Date/Time: 11/21/22 11:50 History and Physical has been reviewed, including an updated exam of the patient. There are NO changes in the patient's condition. Risks, benefits, and alternatives have been discussed and questions answered. Patient agrees to proceed with procedure.
[2022-11-21] MEDS: LACTATED RINGERS 1,000 ML 30 ML IV CONT ×2 (11:54→12:58)
--- NOTE | 2022-11-21 12:29 | W.PM.PROC2 ---
Procedure Note - Detailed Date of Procedure 11/21/22 Pre-op Diagnosis Vaginal bleeding Post-op Diagnosis Same Procedure Performed Exam under anesthesia with repair of vaginal bleeding/revision of vaginal wound Surgeon Hussein Wells MD Anesthesia General Indications This is a woman status post revision of urethral sling and mesh removal 10 days ago. She was at work doing a lot heavy lifting and she noticed significant vaginal bleeding. She is here today for exam under anesthesia and repair. She understands risks of bleeding, infection, damage to the urinary tract, inability to resolve her symptoms. She agreed to proceed Findings Open suture line. Description of Procedure She was correctly identified. Informed consent obtained. She from the operating room. She was given general anesthesia. She was placed in the dorsal thigh position. She was prepped draped sterile fashion. Time-out performed. [place] retractor was placed. We did exam under anesthesia. I located the side I previous suture line. It was immediately apparent the sutures had ripped through. There was bleeding in 1 area in the right upper corner. I used dissection to remove all clots. I examined the rest of the vaginal area inside no other bleeding. I located the area of vaginal bleeding. I did a series of interrupted 2-0 Vicryl sutures. Probably 6-7 sutures in total. This reclosed the suture line and resolved all vaginal bleeding. No packing was placed. There was excellent hemostasis. She was awakened transferred to PACU in stable condition. Estimated Blood Loss 10 Packing No Complications No immediate complications Condition Stable
[2022-11-21] MEDS: HALOPERIDOL LACTATE 5 MG/ML VIAL 1 MG IV PUSH (12:44)
== END 2022-11-21 15:02 | disposition home or self-care (01) ==
LOC: ANHED 10:33 → ANHSURGERY 10:44
PROVIDERS: Emergency Provider Emergency Medicine; Visit Provider Urology
PROC: (CPT 57287; principal; 2022-11-21 12:00)
DX: T81.31XA Disruption of external operation (surgical) wound, not elsewhere classified, initial encounter (principal); N93.9 Abnormal uterine and vaginal bleeding, unspecified; Y83.8 Other surgical procedures as the cause of abnormal reaction of the patient, or of later complication, without mention of misadventure at the time of the procedure; E06.3 Autoimmune thyroiditis; E78.5 Hyperlipidemia, unspecified; F90.9 Attention-deficit hyperactivity disorder, unspecified type; E66.9 Obesity, unspecified; Z68.31 Body mass index [BMI] 31.0-31.9, adult
CPT/HCPCS: 12020; 36415; 80053; 85025; 85610; 85730; 86850; 86900; 86901; 99285; A9270; J1100; J1630; J2250; J2405; J2704; J3010; J7030; J7120